=== PATIENT | male | born 1940 | race Caucasian/White ===

== ENCOUNTER 2016-06-29 09:59 | Day surgery (SDC) | payer OTHER ==
--- NOTE | ~2016-06-29 | EGD ---
EGD REPORT [facility] [address] [address] NAME: JD HOWE : [birth year] STATUS : REG [facility] PAT#: [id number] AGE: 76 ADM/REG DATE : 06/29/16 MR#: [id number] REPORT SERV DATE: 06/29/16 DICTATED BY: KAJAL SOLORIO DATE: 06/29/16 REPORT STATUS : Draft [facility]: [facility] DATE: 06/29/16 Endoscopy Center Patient Name: Jd Howe Date of : 1940 Attending MD: KAJAL SOLORIO MD Procedure Date No Time: 06/29/2016 Procedure: Upper GI endoscopy Indications: Anemia, Heme positive stool Referring MD: Luis Hi MD Medicines: See the Anesthesia note for documentation of the administered medications Complications: No immediate complications. Procedure: Pre-Anesthesia Assessment: - ASA Grade Assessment: IV - A patient with severe systemic disease that is a constant threat to life. After obtaining informed consent, the endoscope was passed under direct vision. Throughout the procedure, the patient's blood pressure, pulse, and oxygen saturations were monitored continuously. The GIF [id number] was introduced through the mouth, and advanced to the second part of duodenum. The upper GI endoscopy was accomplished without difficulty. The patient tolerated the procedure well. Findings: The 2nd part of the duodenum was normal. Biopsies were taken with a cold forceps for histology. Mild inflammation was found in the gastric antrum. Biopsies were taken with a cold forceps for histology. The cardia and gastric fundus were normal on retroflexion. The examined esophagus was normal. Impression: - Normal 2nd part of the duodenum. Biopsied. - Gastritis. Biopsied. - Normal esophagus. Recommendation: - Patient has a contact number available for emergencies. The signs and symptoms of potential delayed complications were discussed with the patient. Return to normal activities tomorrow. Written discharge instructions were provided to the patient. - Regular diet. - Continue present medications. - FOR YOUR BIOPSY RESULTS: Please go to [email or web address] and register to receive your EGD REPORT [address] [address] NAME: JD HOWE : [birth year] STATUS : REG [facility] PAT#: [id number] AGE: 76 ADM/REG DATE : 06/29/16 MR#: [id number] REPORT SERV DATE: 06/29/16 DICTATED BY: KAJAL SOLORIO DATE: 06/29/16 REPORT STATUS : Draft TRANSCRIBED BY: [employer] DATE: 06/29/16 results via the portal. Your biopsy results will be posted there in about 7 to 10 days. IF you do not see result in 10 days, call office. Procedure Code(s): --- Professional --- 46096, Esophagogastroduodenoscopy, flexible, transoral; with biopsy, single or multiple Diagnosis Code(s): --- Professional --- K29.70, Gastritis, unspecified, without bleeding D64.9, Anemia, unspecified R19.5, Other fecal abnormalities CPT copyright 2013 [employer]. All rights reserved. The codes documented in this report are preliminary and upon blending machine feeder review may be revised to meet current compliance requirements. Kajal Solorio MD KAJAL SOLORIO MD 06/29/2016 11:31 AM This report has been signed electronically. Number of Addenda: 0 Note Initiated On: 06/29/2016 11:10 AM Scope Withdrawal Time 0 hours 0 minutes 0 seconds [id number] [address]
--- NOTE | ~2016-06-29 | EGD ---
EGD REPORT [facility] [address] [address] NAME: JD HOWE : [birth year] STATUS : REG [facility] PAT#: [id number] AGE: 76 ADM/REG DATE : 06/29/16 MR#: [id number] REPORT SERV DATE: 06/29/16 DICTATED BY: KAJAL SOLORIO DATE: 06/29/16 REPORT STATUS : Draft [facility]ANSCRIBED BY: [facility] DATE: 06/29/16 Endoscopy Center Patient Name: Jd Howe Date of : 1940 Attending MD: KAJAL SOLORIO MD Procedure Date No Time: 06/29/2016 Procedure: Colonoscopy Indications: Heme positive stool, Anemia, Last colonoscopy: date unknown Referring MD: Luis Hi MD Medicines: See the Anesthesia note for documentation of the administered medications Complications: No immediate complications. Procedure: Pre-Anesthesia Assessment: - ASA Grade Assessment: IV - A patient with severe systemic disease that is a constant threat to life. After I obtained informed consent, the scope was passed under direct vision. Throughout the procedure, the patient's blood pressure, pulse, and oxygen saturations were monitored continuously. The PCF [id number] was introduced through the anus and advanced to the terminal ileum, with identification of the appendiceal orifice and IC valve. The colonoscopy was performed without difficulty. The patient tolerated the procedure well. The quality of the bowel preparation was adequate. Findings: The perianal and digital rectal examinations were normal. Internal hemorrhoids were found during retroflexion and were small. The terminal ileum appeared normal. Diverticula were found in the sigmoid colon, in the descending colon, in the ascending colon and in the cecum. A sessile polyp was found in the cecum. The polyp was small in size. The polyp was removed with a cold biopsy forceps. Resection and retrieval were complete. A sessile polyp was found in the descending colon. The polyp was small in size. The polyp was removed with a cold biopsy forceps. Resection and retrieval were complete. A sessile polyp was found in the rectum. The polyp was 8 mm in size. The polyp was removed with a cold snare. Resection and retrieval were complete. Impression: - Internal hemorrhoids. - The examined portion of the ileum was normal. - Diverticulosis in the sigmoid colon, in the descending EGD REPORT [place] [id number] [place]. [address] NAME: JD HOWE : [birth year] STATUS : REG [facility]#: [id number] AGE: 76 ADM/REG DATE : 06/29/16 MR#: [id number] REPORT SERV DATE: 06/29/16 DICTATED BY: KAJAL SOLORIO DATE: 06/29/16 REPORT STATUS : Draft TRANSCRIBED BY: [facility] DATE: 06/29/16 colon, in the ascending colon and in the cecum. - One small polyp in the cecum. Resected and retrieved. - One small polyp in the descending colon. Resected and retrieved. - One 8 mm polyp in the rectum. Resected and retrieved. Recommendation: - Patient has a contact number available for emergencies. The signs and symptoms of potential delayed complications were discussed with the patient. Return to normal activities tomorrow. Written discharge instructions were provided to the patient. - Regular diet. - Continue present medications. - Repeat colonoscopy in 3 years for surveillance. - FOR YOUR BIOPSY RESULTS: Please go to [email or web address] and register to receive your results via the portal. Your biopsy results will be posted there in about 7 to 10 days. IF you do not see result in 10 days, call office. Procedure Code(s): --- Professional --- 00259, Colonoscopy, flexible, proximal to splenic flexure; with removal of tumor(s), polyp(s), or other lesion(s) by snare technique [address], 59, Colonoscopy, flexible, proximal to splenic flexure; with biopsy, single or multiple Diagnosis Code(s): --- Professional --- K64.8, Other hemorrhoids K57.30, Diverticulosis of large intestine without perforation or abscess without bleeding K62.1, Rectal polyp D12.4, Benign neoplasm of descending colon D12.0, Benign neoplasm of cecum R19.5, Other fecal abnormalities D64.9, Anemia, unspecified CPT copyright 2013 [employer]. All rights reserved. The codes documented in this report are preliminary and upon enterprise software engineer review may be revised to meet current compliance requirements. Kajal Solorio MD KAJAL SOLORIO MD 06/29/2016 11:46 AM EGD REPORT [facility] [address] [address] NAME: JD HOWE : [birth year] STATUS : REG [facility] PAT#: [id number] AGE: 76 ADM/REG DATE : 06/29/16 MR#: [id number] REPORT SERV DATE: 06/29/16 DICTATED BY: KAJAL SOLORIO DATE: 06/29/16 REPORT STATUS : Draft TRANSCRIBED BY: [facility] DATE: 06/29/16 This report has been signed electronically. Number of Addenda: 0 Note Initiated On: 06/29/2016 10:54 AM Scope Withdrawal Time 0 hours 10 minutes 36 seconds [address] [id number]
[~2016-06-29 09:59] MED LIST: ASAB PO; C5; CEFT5 PO; COREG12 PO; COREG25 PO; COREG6 PO; DIABETA5 PO; FLOMAX4 PO; GLUCOPHAGE1000 MG PO; IRON325 MG PO; JANUMET PO; JANUMET1 TA1 PO; LIPITOR20 PO; LOPID6 PO; NEUR100 PO; NORV5 PO; PCET PO; PLAVIX PO; PROAIR HFA INH; PROSCAR5 PO; TRILIPIX135 MG PO; VENTOLIN HFA INH; ZESTORETIC1 TA1 PO; ZESTORETIC1 TAB PO; ZITH250 PO; ZOCOR20 PO; ZOCOR40 PO
== END 2016-06-29 23:59 | disposition home or self-care (01) ==
LOC: DMU 09:59
PROVIDERS: Internal Medicine Gastroenterology
PROC: 0DB98ZX Excision of Duodenum, Via Natural or Artificial Opening Endoscopic, Diagnostic (ICD-10-PCS; 2016-06-29)
PROC: 0DB68ZX Excision of Stomach, Via Natural or Artificial Opening Endoscopic, Diagnostic (ICD-10-PCS; 2016-06-29)
PROC: 0DBH8ZZ Excision of Cecum, Via Natural or Artificial Opening Endoscopic (ICD-10-PCS; principal; 2016-06-29 11:30)
PROC: 0DBM8ZZ Excision of Descending Colon, Via Natural or Artificial Opening Endoscopic (ICD-10-PCS; 2016-06-29 11:30)
PROC: 0DBP8ZZ Excision of Rectum, Via Natural or Artificial Opening Endoscopic (ICD-10-PCS; 2016-06-29 11:30)
DX: D12.8 Benign neoplasm of rectum (principal); D12.4 Benign neoplasm of descending colon; K29.50 Unspecified chronic gastritis without bleeding; K64.8 Other hemorrhoids; K57.30 Diverticulosis of large intestine without perforation or abscess without bleeding; I10 Essential (primary) hypertension; I25.10 Atherosclerotic heart disease of native coronary artery without angina pectoris; J44.9 Chronic obstructive pulmonary disease, unspecified; D64.9 Anemia, unspecified; E11.9 Type 2 diabetes mellitus without complications; Z79.82 Long term (current) use of aspirin; Z88.0 Allergy status to penicillin; Z79.84 Long term (current) use of oral hypoglycemic drugs; Z79.899 Other long term (current) drug therapy; Z87.891 Personal history of nicotine dependence; Z96.1 Presence of intraocular lens; Z98.41 Cataract extraction status, right eye; Z98.42 Cataract extraction status, left eye; Z87.01 Personal history of pneumonia (recurrent); Z86.19 Personal history of other infectious and parasitic diseases; N40.0 Benign prostatic hyperplasia without lower urinary tract symptoms; Z87.442 Personal history of urinary calculi; Z85.6 Personal history of leukemia; Z98.890 Other specified postprocedural states
CPT/HCPCS: 82962; 88305; 94640; J2370